=== PATIENT | female | born 1975 | race Caucasian/White ===

== ENCOUNTER 2017-12-17 00:01 | Emergency (ER) | payer SELFPAY ==
[~2017-12-17] VITALS: Ht 175.3 cm; Wt 60.3 kg
[2017-12-17] MEDS ORDERED: XANAX1 MG ORAL (00:12)
[2017-12-17] MEDS ORDERED: PERCOCET 10-321 EAC1 PO (00:12)
[2017-12-17 00:18] VITALS: BP 116/76
[2017-12-17 01:41] LABS: APPEARANCE,URINE CLEAR; BILIRUBIN, URINE NEGATIVE (NEGATIVE); GLUCOSE, URINE (UA) NEGATIVE (NEGATIVE); KETONES,URINE NEGATIVE (NEGATIVE); LEUKOCYTE ESTERASE ,URINE NEGATIVE (NEGATIVE); NITRITE,URINE NEGATIVE (NEGATIVE); PH,URINE 7 (4.5-8.0); PROTEIN,URINE 1+ (NEGATIVE); UROBILINOGEN,URINE NORMAL MG/DL (0.0-1.0)
[2017-12-17] MEDS ORDERED: PERCOCET 10-321 EACH ORAL (01:44)
[2017-12-17 01:48] LABS: COLOR,URINE YELLOW
--- NOTE | 2017-12-17 01:53 | Emergency Room Report ---
History of Present Illness General Chief Complaint: Abdominal Pain Source: Patient Present Illness HPI Patient 42-year-old female who presented after increased abdominal pain. Patient reports having prior history of similar symptoms during ovulation. She states that she had previous history of fibroid uterus. Patient had previous workup with her [employer]ILL [employer]. The patient denies any change in the pain. Patient states she gets this probably twice a month. She denies any vomiting or diarrhea. She denies any fever. Patient denies any recent abdominal surgeries. She denies any hematemesis or bloody stools. Allergies: Coded Allergies: NSAIDS (NON-STEROIDAL ANTI-INFLAMMA (Verified Allergy, Unknown, 12/17/17) PENICILLINS (Verified Allergy, Unknown, 12/17/17) Patient History Past Medical History: see triage record Last Menstrual Period: december 01 Now: No Reviewed Nursing Documentation: PMH: Agreed; PSxH: Agreed Review of Systems All Other Systems: negative except mentioned in HPI Physical Exam Vital Signs Date Time Temp Pulse Resp B/P (MAP) Pulse Ox O2 Delivery O2 Flow Rate FiO2 12/17/17 00:07 99.0 96 18 116/76 98 Room Air 99.0 General Appearance: well appearing, no apparent distress, alert, GCS 15 Head: normocephalic, atraumatic ENT: hearing grossly normal, normal voice Neck: full range of motion, supple Respiratory: no respiratory distress, speaking full sentences Cardiovascular #1: normal peripheral pulses, regular rate, rhythm, no edema Gastrointestinal: normal bowel sounds, soft Musculoskeletal: normal inspection, back normal, digits/nails normal, no calf tenderness Neurologic: normal gait Psychiatric: mood/affect normal Skin: no rash Medical Decision Making Diagnostic Impression: Primary Impression: Abdominal pain ER Course Patient presented for abdominal pain. Differential diagnoses included ischemic bowel, appendicitis, perforated viscus, abdominal aortic aneurysm, inferior myocardial infarction, viral gastroenteritis Patient has a benign exam and does not appear to require any further imaging or laboratory testing at this time. Urinalysis showed evidence of infection. Urine test was negative. The patient given oral pain medications. This appears to be related the patient's similar pain in the past per patient given short-term pain medication prescription. The patient is advised to follow up with primary care doctor next few days. Patient is advised to return if any worsening condition or if any changes in status that are concerning. This report is dictated with [employer] hollow handle bench worker software which may occasionally lead to discrepancies related to use of this software. Labs Test 12/17/17 00:38 Urine Color Yellow Urine Appearance Clear Urine pH 7 (4.5-8.0) Urine Specific [place] 1.005 (1.005-1.035) Urine Protein 1+ (NEGATIVE) Urine Glucose (UA) Negative (NEGATIVE) Urine Ketones Negative (NEGATIVE) Urine Occult Blood Negative (NEGATIVE) Urine Nitrite Negative (NEGATIVE) Urine Bilirubin Negative (NEGATIVE) Urine Urobilinogen Normal MG/DL (0.0-1.0) Urine Leukocyte Esterase Negative (NEGATIVE) Urine RBC 0-2 /HPF (0 - 2) Urine WBC 0-2 /HPF (0 - 2) Urine Squamous Epithelial Cells Occasional /LPF Urine Bacteria Few /HPF (NONE) Urine Mucus Few /LPF (NONE/OCC) Urine HCG, Qualitative Negative (NEGATIVE) Last Vital Signs Date Time Temp Pulse Resp B/P (MAP) Pulse Ox O2 Delivery O2 Flow Rate FiO2 12/17/17 00:50 99.0 12/17/17 00:18 18 116/76 98 Room Air 12/17/17 00:07 96 Status: improved Disposition: HOME, SELF-CARE Condition: Stable Scripts Oxycodone Hcl/Acetaminophen 10-325 Mg Tablet (PERCOCET 10-325 MG TABLET*) 1 Each Tablet 1 TAB ORAL Q4H PRN for For Pain, #5 TAB Prov: Max Roberts 12/17/17 Patient Instructions: Abdominal Pain, Adult Max Roberts Dec 17, 2017 01:53
[2017-12-17 02:00] VITALS: BP 116/76
== END 2017-12-17 02:00 | disposition home or self-care (01) ==
LOC: EMR 00:24
DX: R10.9 Unspecified abdominal pain (principal); Z88.0 Allergy status to penicillin; Z88.6 Allergy status to analgesic agent
CPT/HCPCS: 81001; 81025; 99283